=== PATIENT | female | born 1960 | race African-American/Black ===

== ENCOUNTER 2016-09-25 21:51 | Inpatient (IN) ==
[2016-09-25] MEDS ORDERED: D50W SYRINGE ONE (22:12)
[2016-09-25] MEDS ORDERED: NS 500 ML ONE (22:13)
--- NOTE | 2016-09-25 22:32 | PROVIDER DOCUMENTATION ---
HPI-General Adult - General Chief Complaint: Altered Mental Status Stated Complaint: "AMS, lethargic during dialysis." Time Seen by Provider: 09/25/16 22:05 Source: other (dialysis) Unable to obtain history due to:: altered Allergies/Adverse Reactions: Patient Allergies Allergy/AdvReac Type Severity Reaction Status Date / Time clindamycin Allergy RASH Verified 09/25/16 23:00 Home Medications: Home Medication List Medication Instructions Recorded Confirmed Last Taken Type Cinacalcet HCl [Sensipar] 30 mg PO BID 07/11/15 09/25/16 01/31/16 08:00 History Gabapentin 300 mg PO BID 07/11/15 09/25/16 01/31/16 08:00 History Lanthanum Carbonate [Fosrenol] 1,000 mg PO TID CC 07/11/15 09/25/16 01/31/16 12: 00 History Epoetin Alfredito [Epogen] 10,000 unit SUBQ MoWeFr@0900 #30 08/02/15 09/25/16 09:00 Rx vial Levothyroxine [Synthroid] 100 microgm PO DAILY #30 tablet 08/02/15 09/25/16 Unknown Rx Sodium Hypochlorite 0.25% [Dakin's 1 ml TOP BID #1 bottle 08/02/15 09/25/16 Unknown Rx 0.25% Soln] Hydralazine [Apresoline] 50 mg PO TID #90 tablet 02/01/16 09/25/16 Unknown Rx Folic Acid 0.4 mg PO DAILY #30 tablet 07/16/16 09/25/16 Unknown Rx Tramadol [Ultram] 50 mg PO Q8HR PRN #60 tablet 07/16/16 09/25/16 Unknown Rx - History of Present Illness -Gen Adult Nature of Presenting Problems: 56 y/o AAF was at dialysis and near the end when the daughter states she became confused and lethargic. Pt was sent to the ED for evaluation. Dialysis reports they removed 6 kilos. Family states her mom is set in her ways and this was her first dialysis in 2 weeks. Location of Pain/Injury: reports: none Onset/Duration: reports: abrupt, this evening Timing: reports: still present Modifying Factors: improves with: nothing Review of Systems - Adult - REVIEW OF SYSTEMS - ADULT ROS:: ROS per family (Pt would answer questions but unable to carry on a converstion.) Constitutional: reports: other (lethargic) Respiratory: denies: cough, shortness of breath, wheezing Neurological: reports: other (confused). denies: seizure, slurred speech Past History - Adult - PAST MEDICAL HISTORY-ADULT Review of Records: reports: Old Records Reviewed, Nursing Assessment Review, Medications Reviewed Major Childhood Illnesses: reports: denies history Cardiovascular: reports: cardiac disease, CHF, HTN, hyperlipidemia Respiratory: reports: denies history Gastrointestinal: reports: denies history Obstetrical/Gynecological: reports: denies history Genitourinary: reports: dialysis, ESRD, kidney disease Musculoskeletal: reports: denies history Neurological: reports: denies history Psychiatric: reports: depression Endocrine/Immune: reports: Diabetes, thyroid disorder Other Conditions: reports: denies history - PRIOR SURGERIES/PROCEDURES Surgical/Procedure History: reports: cholecystectomy, BTL, , indwelling device - IMMUNIZATION STATUS Childhood Immunizations: See Nurse Assessment Flu Vaccine: See Nurse Assessment - FAMILY HISTORY Family History: reviewed, not pertinent - SOCIAL HISTORY Smoking: non-smoker Substance Use: alcohol Alcohol Use Frequency: occasionally Living Situation: family Physical Exam-General - PHYSICAL EXAM-ADULT Initial Vital Signs Reviewed: Yes - CONSTITUTIONAL General Appearance: alert, obese (morbid) - EYES Eyes: pink conjunctivae. negative: PERRL/EOMI (left eye deviation and bilateral pupils are mildly reactive) - HEAD, EARS, NOSE, MOUTH & THROAT HENMT: moist mucous membranes, normal ENT inspection, TMs normal, pharynx normal - NECK Neck: non-tender, full range of motion, supple - RESPIRATORY Respiratory: chest non-tender, no respiratory distress, no accessory muscle use , decreased breath sounds - GASTROINTESTINAL (ABDOMEN) Abdominal Exam: normal bowel sounds, non tender, soft - MUSCULOSKELETAL Back Exam: normal inspection, no CVA tenderness, no vertebral tenderness Extremity: deformity (left foot/ankle amptuation), other (fistula in left arm, multiple healed scars across bilateral hands.) - SKIN Integumentary: normal color, normal turgor, warm/dry - NEUROLOGIC Neurologic: grossly normal, no motor/sensory deficits - PSYCHIATRIC Psych/Mental Status: oriented x 3, depressed affect. negative: normal thought process Progress - PLAN OF CARE/RESULTS Progress/Plan/Lab Results: Orders Category Date Time Status HEAD W/O CONTRAST [CT] Stat Exams 09/25/16 22:26 Taken CBC WITH ELECTRONIC DIFF [HEME] Stat Lab 09/25/16 22:20 Completed COMPREHENSIVE METABOLIC PANEL [CHEM] Stat Lab 09/25/16 22:20 Completed PROTIME WITH INR [COAG] Stat Lab 09/25/16 22:20 Completed URINE CULTURE [RM] Routine Lab 09/26/16 01:56 Received 0.9% Sodium Chloride Inj [Ns] 500 ml Med 09/25/16 22:13 Discontinued .ROUTE As Directed 0.9% Sodium Chloride Inj [Ns] 500 ml Med 09/25/16 23:03 Active IV 30 mls/hr Dextrose 50% Syringe [D50w Syringe] Med 09/25/16 22:12 Discontinued 50 ml .ROUTE .STK-MED ONE Dextrose 50% Syringe [D50w Syringe] Med 09/25/16 23:03 Discontinued 50 ml IV NOW ONE EKG [EKG] Stat Ther 09/25/16 22:09 Ordered Vital Signs Temp Pulse Resp BP Pulse Ox 09/26/16 01:38 90 13 127/75 100 09/25/16 23:19 97.9 F 92 H 18 160/117 98 09/25/16 22:30 97.8 F 92 H 16 100/75 98 09/25/16 21:55 97.7 F 92 H 12 123/89 100 clindamycin Allergy (Verified 09/25/16 23:00) RASH Cinacalcet HCl [Sensipar] 30 mg PO BID 07/11/15 Gabapentin 300 mg PO BID 07/11/15 Lanthanum Carbonate [Fosrenol] 1,000 mg PO TID CC 07/11/15 Epoetin Alfredito [Epogen] 10,000 unit SUBQ MoWeFr@0900 #30 vial 08/02/15 Levothyroxine [Synthroid] 100 microgm PO DAILY #30 tablet 08/02/15 Sodium Hypochlorite 0.25% [Dakin's 0.25% Soln] 1 ml TOP BID #1 bottle 08/02/15 Hydralazine [Apresoline] 50 mg PO TID #90 tablet 02/01/16 Folic Acid 0.4 mg PO DAILY #30 tablet 07/16/16 Tramadol [Ultram] 50 mg PO Q8HR PRN #60 tablet 07/16/16 I&O 09/24/16 09/25/16 09/26/16 06:59 06:59 06:59 Output Total 210 Balance -210 Laboratory 09/26/16 09/26/16 09/25/16 01:05 00:41 23:30 WBC RBC Hgb Hct MCV MCH MCHC RDW Std Deviation Plt Count MPV Immature Gran % (Auto) Neut % (Auto) Lymph % (Auto) Cocke % (Auto) Eos % (Auto) Baso % (Auto) Immature Gran # (Auto) Neut # (Auto) Lymph # (Auto) Cocke # (Auto) Eos # (Auto) Baso # (Auto) PT INR Sodium Potassium Chloride Carbon Dioxide Anion Gap BUN Creatinine Estimated GFR/1.73 m2 BUN/Creatinine Ratio Glucose POC Glucose 100 106 H Calculated Osmolality Calcium Total Bilirubin AST ALT Alkaline Phosphatase Total Protein Albumin Globulin Albumin/Globulin Ratio Urine Source CATH Urine Color YELLOW Urine Clarity CLEAR Urine pH 7.0 Ur Specific [place] 1.015 Urine Protein 100 A Urine Ketones NEGATIVE Urine Blood SMALL A Urine Nitrite NEGATIVE Urine Bilirubin NEGATIVE Urine Urobilinogen 0.2 Urine Microscopic RBC <10 Urine WBC NEGATIVE Urine Microscopic WBC <10 Ur Epithelial Cells <10 Urine Bacteria NEGATIVE Urine Glucose 100 A 09/25/16 09/25/16 09/25/16 22:20 22:20 22:20 WBC 7.89 RBC 3.64 L Hgb 9.8 L Hct 31.3 L MCV 86.0 MCH 26.9 L MCHC 31.3 L RDW Std Deviation 16.7 H Plt Count 145 MPV 11.4 H Immature Gran % (Auto) 0.3 Neut % (Auto) 72.3 Lymph % (Auto) 14.6 L Cocke % (Auto) 9.5 H Eos % (Auto) 2.9 Baso % (Auto) 0.4 Immature Gran # (Auto) 0.02 Neut # (Auto) 5.71 Lymph # (Auto) 1.15 L Cocke # (Auto) 0.75 H Eos # (Auto) 0.23 Baso # (Auto) 0.03 PT 12.2 H INR 1.15 Sodium 134 L Potassium 4.9 Chloride 89 L Carbon Dioxide 23 L Anion Gap 22 BUN 66 H Creatinine 7.0 H Estimated GFR/1.73 m2 7 BUN/Creatinine Ratio 9 Glucose 71 POC Glucose Calculated Osmolality 286 Calcium 7.8 L Total Bilirubin 0.63 AST 23 ALT 15 Alkaline Phosphatase 72 Total Protein 9.4 H Albumin 4.2 Globulin 5.2 Albumin/Globulin Ratio 0.8 Urine Source Urine Color Urine Clarity Urine pH Ur Specific [place] Urine Protein Urine Ketones Urine Blood Urine Nitrite Urine Bilirubin Urine Urobilinogen Urine Microscopic RBC Urine WBC Urine Microscopic WBC Ur Epithelial Cells Urine Bacteria Urine Glucose - CT/MRI 1 CT Study: Head Impression: Abnormal (no Blood, no hydrocephalus, mild left maxillary sinusitis Read by Radiologist) Attestation - Scribe Verification/Attestation Scribe:: Js Conroy Acting as Scribe for:: Hemal Richmond Scribe documention review:: This chart was documented by a scribe and accurately reflects the service the provider performed and the decisions made by the provider.
[2016-09-25 22:35] LABS: MANUAL DIFF NEEDED? NO
[2016-09-25 22:38] LABS: BASO% 0.4 % (0.0-0.8); EOS# 0.23 X1000 (0.0-0.7); EOS% 2.9 % (0.0-10.0); HEMATOCRIT 31.3 % (37.0-47.0); HEMOGLOBIN 9.8 g/dL (12.0-16.0); IMM GRAN# 0.02 X1000 (0.0-0.04); IMM GRAN% 0.3 % (0.0-0.5); LYMPH# 1.15 X1000 (1.2-3.4); LYMPH% 14.6 % (20.5-51.1); MCH 26.9 PG (27-31); MCHC 31.3 g/dL (33-37); MONO# 0.75 X1000 (0.11-0.59); MONO% 9.5 % (1.7-9.3); MPV 11.4 FL (7.4-10.4); NEUT% 72.3 % (42.2-75.2); PLT 145 X1000 (130-400); RBC 3.64 XMIL (4.2-5.4)
[2016-09-25 22:52] LABS: ALBUMIN 4.2 g/dL (3.5-5.0); CALCIUM 7.8 mg/dL (8.8-10.2); POTASSIUM 4.9 mmol/L (3.5-5.1); TOTAL BILIRUBIN 0.63 mg/dL (0.20-1.00); TOTAL PROTEIN 9.4 g/dL (6.3-8.3)
[2016-09-25] MEDS ORDERED: D50W SYRINGE IV ONE (23:03)
[2016-09-25] MEDS ORDERED: NS 500 ML IV ONE (23:03)
[2016-09-26 00:03] LABS: INR 1.15; PROTIME 12.2 Seconds (9.2-11.7)
[2016-09-26 01:14] LABS: URINE SOURCE CATH
[2016-09-26 01:55] LABS: BILIRUBIN URINE NEGATIVE (NEGATIVE); BLOOD URINE SMALL (NEGATIVE); CLARITY CLEAR (CLEAR); COLOR YELLOW; GLUCOSE URINE 100 mg/dL (NEGATIVE); LEUKOCYTES URINE NEGATIVE (NEGATIVE); NITRITE URINE NEGATIVE (NEGATIVE); PROTEIN URINE 100 mg/dL (NEGATIVE); SP GRAVITY URINE 1.015; URINE CULTURE NEEDED? YES; URINE EPITHELIAL CELLS <10 /HPF (<10); URINE RBC <10 /HPF (<10); URINE WBC <10 /HPF (<10); UROBILINOGEN URINE 0.2 EU/dL (0.2-1.0)
[2016-09-26] MEDS ORDERED: ZOFRAN IV PRN (04:38)
[2016-09-26] MEDS ORDERED: D50W SYRINGE IV PRN (04:46)
[2016-09-26 04:52] LABS: BLOOD TYPE ARTERIAL; SAMPLE BLOOD
[2016-09-26 05:11] LABS: ALLEN TEST YES; BE -2.6 mmoll (-3.0-3.0); DRAW SITE R RADIAL; METHB 1.8 % (0.0-1.5); O2(CT) 11.5 mL/dL (15.0-23.0); PCO2(98.6) 47 mmHg (35-45); PO2(98.6) 53 mmHg (60-100); SAO2 87.1 % (95.0-100.0); THB 9.7 g/dL (11.5-17.4); pH(98.6) 7.31 (7.35-7.45)
[2016-09-26 05:12] LABS: MODALITY CANNULA
[2016-09-26 05:29] LABS: HEMOGLOBIN A1C 4.5 % (4.8-6.0)
--- NOTE | 2016-09-26 05:53 | EKG Report ---
Test Performed on : 09/25/2016 10:14:00 PM Test Reason : AMS Blood Pressure : / mmHG Vent. Rate : 093 BPM Atrial Rate : 093 BPM P-R Int : 224 ms QRS Dur : 094 ms QT Int : 390 ms P-R-T Axes : 056 042 027 degrees QTc Int : 484 ms Sinus rhythm. with 1st degree AV block. Indeterminate axis Prolonged QT Abnormal ECG When compared with ECG of 13-JUL-2016 08:39, No significant change was found Unconfirmed Result
--- NOTE | 2016-09-26 06:08 | HISTORY AND PHYSICAL ---
CHIEF COMPLAINT: Confusion. PRIMARY HOT STICK MAN: Dr. Rucker HISTORY OF PRESENT ILLNESS: Ms. James is a 56-year-old female with end-stage renal disease that has Friday, Friday and Friday dialysis that is followed by Dr. Rucker. She reportedly did not undergo hemodialysis for an unknown reason for a couple of weeks. There is no family at the bedside. The ER provider spoke to the daughter who stated that the patient had not been to dialysis and today upon going to dialysis they pulled off roughly 15 pounds of fluid. Apparently, upon leaving the dialysis center, she became confused and came into the emergency room. The patient is unable to provide any information. She is disoriented x3 and unable to give any account of what happened. A CT of the head was obtained which was reported to us as stable by the ER provider Dr. Richmond. A report is not available and the ER charting also was not available at this time. Laboratory Data initially drawn was stable with the patient's baseline labs. She had previously been admitted on 07/13/2016. On arrival to the emergency room, her blood glucose was around 60. She received 1 amp of D50. She was also given a 500 mL bolus of normal saline. She will be admitted to the medical floor for further evaluation and treatment. PAST MEDICAL HISTORY: 1. Iron deficiency anemia. 2. End-stage renal disease with Friday, Friday and Friday hemodialysis. 3. Calciphylaxis. 4. Morbid obesity. 5. Diabetes mellitus type 2. 6. Osteomyelitis of the left leg. 7. Hypothyroidism. 8. Left eye blindness. 9. Medical noncompliance. SURGICAL HISTORY: 1. Hysterectomy. 2. Colonoscopy. 3. Left arm shunt. 4. section. 5. Left toe amputation and then left [id number] amputation. SOCIAL HISTORY: Apparently, the patient does not drink, use tobacco or illicit drugs as she lived with her niece on the last dictation that was available on 07/13/2016. ALLERGIES: She is allergic to clindamycin causing a rash. HOME MEDICATIONS: 1. Neurontin 300 mg p.o. b.i.d. 2. Fosrenol 1000 mg p.o. t.i.d. 3. Sensipar 30 mg p.o. b.i.d. 4. Epogen 20736 units subcu Friday, Friday and Friday. 5. Dakin 0.25% solution topically b.i.d. 6. Synthroid 100 mcg p.o. b.i.d. 7. Apresoline 50 mg p.o. t.i.d. 8. Folic Acid 0.4 mg p.o. daily. 9. Ultram 50 mg p.o. q.8 p.r.n. REVIEW OF SYSTEMS: Review of systems was unable to be obtained related to patient's mentation. PHYSICAL EXAMINATION: VITAL SIGNS: Temperature 98.5 degrees, pulse 89, respirations 14, blood pressure 176/80 and oxygen saturation 100% on 2 L nasal cannula. GENERAL: A 56-year-old female very lethargic, says some words unable to answer any questions lying on the ER stretcher in no acute distress. HEENT: Head is atraumatic, normocephalic. Pupils equal, round, reactive to light. Extraocular eye movement could not be tested as patient will not follow commands. Mucous membranes are moist. NECK: Short and thick. JVD could not be thoroughly examined related to body habitus. No carotid bruit was heard on auscultation. CARDIOVASCULAR: S1-S2 appreciated. 1 to 2/6 ejection murmur noted. No gallops. No rubs. LUNGS: Crepitations noted throughout bilateral lung jeffrey, symmetrical rise and fall respirations. No rhonchi. No rales. ABDOMEN: Protuberant soft, nondistended, and nontender. Bowel sounds hypoactive in all 4 quadrants. No pulsatile mass. No organomegaly. NEUROLOGICAL: She is lethargic almost to the extent of being obtunded at times. Does reflex to painful stimulus. Does not follow commands. Does attempt to answer some questions but does not answer any questions accurately. Disoriented x3. EXTREMITIES: Left above the knee amputation site warm and dry. Right lower extremity 1 to 2+ edema nonpitting. 2+ pedal pulses. Left upper extremity AV graft with positive bruit and thrill. GENITOURINARY: Anderson catheter will be placed. No bladder distention noted. SKIN: Warm, dry and intact. No acute lesions or rash. DIAGNOSTIC DATA: CT of the head as interpreted by Dr. Richmond in the ER. No acute intracranial process. A report is not available at this time on the CT exam. The ER charting on this patient for today also could not be found related to this CT scan. LABORATORY DATA: WBC 7.89, hemoglobin 9.8, hematocrit 31.3 and platelet count 145,000. PT 12.2, INR 1.15. Sodium 134, potassium 4.9, chloride 89, carbon dioxide 23, BUN 66, creatinine 7.0, and glucose 106. Urine unremarkable. ABG is pending. ASSESSMENT AND PLAN: 1. Dialysis dysequilibrium syndrome. We will consult Dr. Rucker. A 500 mL bolus of normal saline was given in the emergency room. Her blood pressure and vital signs have all normalized. We will continue to monitor neuro checks. 2. Diabetes mellitus type 2. The last hemoglobin A1c was 6.1. It was done on 06/09/2015, one has not been repeated since that time. We will check a hemoglobin A1c. The patient does not appear to be on any outpatient treatment and was hypoglycemic on arrival. We will monitor. 3. Hypothyroidism. Check TSH level. Continue Synthroid. 4. Hyperlipidemia, aware. 5. Morbid obesity. 6. Peripheral artery disease, aware. 7. End-stage renal disease with Friday, Friday, and Friday hemodialysis as noted above. We will consult Dr. Rucker. Further recommendations per patient clinical course. Dictated by EDUARDO Tapia for Samina Doran MD Did independent exam and discussed plan with RAFFI ALDANA
[2016-09-26] MEDS ORDERED: NS 2,000 ML MISC PRN (06:28)
[2016-09-26] MEDS ORDERED: HEPARIN IV PRN (06:28)
[2016-09-26] MEDS ORDERED: TIGHT: 0.2 ML/HR MISC PRN (06:28)
--- NOTE | 2016-09-26 07:47 | Diag Imaging Result Document ---
PROCEDURE NAME: HEAD W/O CONTRAST - 09/25/2016 CT BRAIN WITHOUT: FINDINGS: No parenchymal hemorrhage. No epidural or subdural hematoma. No subarachnoid hemorrhage. No mass identified on this noncontrasted exam. No hydrocephalus. No sinus opacification. Minimal mucosal thickening in the left maxillary sinus. IMPRESSION: 1. No hemorrhage. 2. Mild left maxillary mucosal thickening. A preliminary report was given at 10:46 p.m.
[2016-09-26] MEDS: HEPARIN SUBQ SCH ×3 (09:14→20:11)
[2016-09-26] MEDS ORDERED: NS 2,000 ML ONE (10:54)
[2016-09-26] MEDS ORDERED: HEPARIN ONE (10:55)
--- NOTE | 2016-09-26 13:51 | CONSULTATION ---
DATE OF CONSULTATION: 09/26/2016 REASON FOR CONSULTATION: Assistance with management, end-stage renal disease. HISTORY OF PRESENT ILLNESS: Ms James is a 56-year-old black female who is well known to me. She has end-stage kidney disease secondary to diabetes. She also has peripheral vascular disease, hypertension, obesity, hyperphosphatemia, anemia, hypothyroidism. She had a in her family and became depressed and skipped dialysis for 1 week. This is a problem that she has dealt with intermittently over time, and it has significantly impaired her adherence with her outpatient dialysis regimen, as well as her diet, fluid restriction, and medications. She did attend treatment last evening where she had 19 kg of fluid above her dry weight. She completed her treatment, but was sent to the emergency room because of altered mental status. She underwent evaluation in the emergency room, which included a CT of the brain. This study had no acute intracranial changes. Her laboratory data was consistent with end-stage kidney disease, but no other acute abnormalities aside from modest anemia and modest hypoxemia. She was treated with supplemental oxygen and admitted to the floor. No IV antibiotics were administered. Today she is awake. She describes her history and she became tearful. She is not able to give any specific reason why she has skipped dialysis except she just could not emotionally deal with the burden. She does not have chest pain or shortness of breath or chest discomfort. She is thirsty all the time. PAST MEDICAL HISTORY: As above. HOME MEDICATIONS: Include gabapentin, lanthanum carbonate, cinacalcet, erythropoietin, Dakin's solution, levothyroxine, hydralazine, folate, tramadol. ALLERGIES: Clindamycin. SOCIAL HISTORY: She lives with her children who are the primary caregivers. FAMILY HISTORY: Positive for diabetes, hypertension, and ESRD. PHYSICAL EXAMINATION: Vital Signs: Blood pressure 153/78, heart rate 87, respirations 17, afebrile. General: She is a morbidly obese woman, tearful, flat affect. Skin: Warm and dry. Conjunctivae are pink. Pupils are equal. Oropharynx is dry. Dentition normal. Neck: Supple. The neck veins are not visible. Heart: Regular. No murmurs, rubs, or gallops. Lungs: Have equal breath sounds. No crackles or wheezes. Abdomen: Soft and nontender. Bowel sounds are present. Extremities: Have 1+ edema. No clubbing or cyanosis. Left AKA. Neurologic: Grossly nonfocal. LABORATORY DATA: A pH of 7.31, pCO2 of 47, PO2 of 53. Hemoglobin 9.8. Sodium 134, potassium 4.9, chloride 89, bicarbonate 23, BUN 66, creatinine 7. IMPRESSION AND PLAN: Uremia with altered sensorium, improved following dialysis. There was a question raised about dialysis disequilibrium. I think that is not likely, and it is more likely she was just comatose from uremia. These symptoms were present before dialysis was initiated on yesterday. We will dialyze her today and daily through Friday in order to achieve her outpatient dry weight and to adequately manage her uremia. Her electrolytes and acid-base status are acceptable. Her anemia is moderate, and she is receiving erythropoietin. No further changes. Continue home medications.
[2016-09-26] MEDS: FOSRENOL PO SCH ×3 (15:58→18:04)
[2016-09-26] MEDS: APRESOLINE PO SCH ×3 (15:58→18:05)
[2016-09-26] MEDS: FOLIC ACID PO SCH (15:58)
[2016-09-26] MEDS: SENSIPAR PO SCH ×2 (15:59→20:16)
[2016-09-26] MEDS: SYNTHROID PO SCH (15:59)
[2016-09-26] MEDS: DAKIN'S 0.25% SOLN TOP SCH ×2 (16:00→20:16)
[2016-09-26 19:09] LABS: CALCIUM 8.1 mg/dL (8.8-10.2); POTASSIUM 3.8 mmol/L (3.5-5.1)
[2016-09-26] MEDS ORDERED: NS 500 ML IV ONE (20:02)
--- NOTE | 2016-09-27 05:41 | EKG Report ---
Test Performed on : 09/26/2016 7:35:39 PM Test Reason : No Order in [place] Blood Pressure : / mmHG Vent. Rate : 122 BPM Atrial Rate : 061 BPM P-R Int : 000 ms QRS Dur : 090 ms QT Int : 376 ms P-R-T Axes : 000 -15 036 degrees QTc Int : 535 ms Atrial fibrillation. with rapid ventricular response. Indeterminate axis Abnormal ECG When compared with ECG of 25-SEP-2016 22:14, (Unconfirmed) Atrial fibrillation. has replaced Sinus rhythm. Confirmed by Jus Wilson MD ([id number]) on 09/27/2016 8:59:45 PM
[2016-09-27] MEDS: HEPARIN SUBQ SCH ×3 (06:04→21:37)
[2016-09-27 06:36] LABS: MANUAL DIFF NEEDED? NO
[2016-09-27 06:51] LABS: BASO% 0.4 % (0.0-0.8); EOS# 0.15 X1000 (0.0-0.7); HEMATOCRIT 29.9 % (37.0-47.0); HEMOGLOBIN 9.1 g/dL (12.0-16.0); IMM GRAN# 0.02 X1000 (0.0-0.04); IMM GRAN% 0.3 % (0.0-0.5); LYMPH# 1.22 X1000 (1.2-3.4); LYMPH% 15.9 % (20.5-51.1); MCH 27.2 PG (27-31); MCHC 30.4 g/dL (33-37); MCV 89.3 FL (81-99); MPV 11.5 FL (7.4-10.4); NEUT% 64.4 % (42.2-75.2); PLT 155 X1000 (130-400); RBC 3.35 XMIL (4.2-5.4)
[2016-09-27 07:02] LABS: CALCIUM 8.1 mg/dL (8.8-10.2); POTASSIUM 3.9 mmol/L (3.5-5.1)
[2016-09-27] MEDS ORDERED: HEPARIN IV PRN (07:16)
[2016-09-27] MEDS ORDERED: NS 2,000 ML MISC PRN (07:16)
[2016-09-27] MEDS ORDERED: TIGHT: 0.2 ML/HR MISC PRN (07:16)
[2016-09-27] MEDS: EPOGEN SUBQ SCH (08:46)
[2016-09-27] MEDS ORDERED: NS 2,000 ML ONE (08:47)
[2016-09-27] MEDS ORDERED: HEPARIN ONE (08:47)
[2016-09-27] MEDS: FOSRENOL PO SCH ×3 (11:21→18:42)
[2016-09-27] MEDS: DAKIN'S 0.25% SOLN TOP SCH ×2 (11:22→21:38)
[2016-09-27] MEDS: APRESOLINE PO SCH ×3 (11:22→18:42)
--- NOTE | 2016-09-27 11:27 | PROGRESS NOTE ---
DATE: 09/27/2016 SUBJECTIVE: She states she is ready for discharge. No shortness of breath. No nausea or vomiting. She does not remember coming to the hospital. OBJECTIVE: Vital Signs: Blood pressure 116/52, heart rate 87, respirations 17, afebrile. General: She is an obese woman in no acute distress. Skin: Warm and dry. Conjunctivae are pink. Oropharynx is moist. Neck: Neck veins are not visible. Heart: Regular. Lungs: Have equal breath sounds. No crackles. Abdomen: Soft and nontender. Bowel sounds are present. Extremities: Have no edema, clubbing, or cyanosis. LABORATORY DATA: Sodium 135, potassium 3.9, chloride 94, bicarbonate 25, BUN 37, creatinine 5.5, hemoglobin 9.1. IMPRESSION: 1. Uremia from dialysis nonadherence, improved. 2. Volume overload, improved. 3. Anemia: No significant change. 4. Okay for discharge from my perspective today.
[2016-09-27] MEDS ORDERED: ZOFRAN ONE (12:24)
--- NOTE | 2016-09-27 14:46 | PROGRESS NOTE ---
DATE: 09/27/2016 SUBJECTIVE: This patient is getting dialysis today. She is answering all of my questions, but her answer is slow. She knows that she is at [facility]. She is somnolent, but arousable. It looks like the encephalopathy is getting better. OBJECTIVE: Vital Signs: Temperature 98.1 degrees, pulse 87, respiratory rate 17, blood pressure 116/52, and oxygen saturation 99% on 2 liters of nasal cannula. HEENT: Head normocephalic. No trauma. PERRLA. Neck: Supple. No JVD. No masses. Central trachea. Chest: Clear to auscultation. Mild rales at the bases. Abdomen: Protuberant, soft, nontender, nondistended. Bowel sounds present. Extremities: There is 2+ lower pedal edema, left upper extremity with an AV graft with positive bruit and thrill. Neurological: The patient is somnolent, but arousable. She is answering all my questions and following commands. LABORATORY DATA: WBC 7.6, hemoglobin 9.1, hematocrit 29.9, platelets 155,000. Sodium 135, potassium 3.9, chloride 94, bicarbonate 25, BUN 37, creatinine 5.5, glucose 80, calcium 8.1. ASSESSMENT AND PLAN: 1. Metabolic encephalopathy, likely secondary to uremia. It looks like this is getting better. She is more oriented, and she is answering all my questions. She is still somnolent. We will continue with monitoring and dialysis. 2. End-stage renal disease, on hemodialysis. This patient is getting dialysis today. Probably tomorrow she will get a new one as well. The nephrology department is following this patient. We will follow their recommendations. 3. Type 2 diabetes. Her hemoglobin A1c is 4.5. We will continue with the same treatment and monitoring. Upon arrival, this patient was hypoglycemic. Probably, this patient has been having hypoglycemia at home as well. 4. Hypothyroidism. Continue with the same treatment. 5. Hyperlipidemia, aware. 6. Morbid obesity, aware. 7. Peripheral artery disease, aware.
[2016-09-27] MEDS: FOLIC ACID PO SCH (15:43)
[2016-09-27] MEDS: SYNTHROID PO SCH (15:43)
[2016-09-27] MEDS: SENSIPAR PO SCH ×2 (15:43→21:38)
[2016-09-28] MEDS: HEPARIN SUBQ SCH ×3 (04:41→21:44)
[2016-09-28 08:17] LABS: MANUAL DIFF NEEDED? NO
[2016-09-28 08:28] LABS: BASO% 0.4 % (0.0-0.8); EOS# 0.23 X1000 (0.0-0.7); EOS% 2.9 % (0.0-10.0); HEMATOCRIT 32.1 % (37.0-47.0); HEMOGLOBIN 9.6 g/dL (12.0-16.0); LYMPH% 21.6 % (20.5-51.1); MCHC 29.9 g/dL (33-37); MCV 90.4 FL (81-99); MONO# 1.15 X1000 (0.11-0.59); MONO% 14.6 % (1.7-9.3); MPV 12.2 FL (7.4-10.4); NEUT% 60.5 % (42.2-75.2); PLT 172 X1000 (130-400); RBC 3.55 XMIL (4.2-5.4)
[2016-09-28 09:05] LABS: CALCIUM 7.7 mg/dL (8.8-10.2)
[2016-09-28] MEDS: SENSIPAR PO SCH ×2 (10:38→21:45)
[2016-09-28] MEDS: FOSRENOL PO SCH ×3 (10:39→21:45)
[2016-09-28] MEDS: FOLIC ACID PO SCH (10:39)
[2016-09-28] MEDS: APRESOLINE PO SCH ×3 (10:39→21:45)
[2016-09-28] MEDS: DAKIN'S 0.25% SOLN TOP SCH ×2 (10:39→21:45)
[2016-09-28] MEDS: SYNTHROID PO SCH (10:39)
--- NOTE | 2016-09-28 13:12 | PROGRESS NOTE ---
DATE: 09/28/2016 SUBJECTIVE: This patient is still somnolent but arousable. She is oriented x3. Her encephalopathy is improving. OBJECTIVE: Vital Signs: Temperature 97.4 degrees, pulse 79, respiratory rate 18, blood pressure 111/54, O2 saturation 100% on 2 L of nasal cannula. HEENT: Head normocephalic. No trauma. PERRLA. Neck: Supple. No JVD. No masses. Central trachea. Chest: Clear to auscultation. Mild rales at the bases. Abdomen: Protuberant and soft. Nontender, nondistended. Positive bowel sounds. Extremities: 2+ pedal edema. Left upper extremity with an AV graft with positive bruit and thrill. Neurological: The patient is somnolent but arousable. Oriented x3. She is bedbound even at home. She is following commands on and off. LABORATORY: WBC 7.8, hemoglobin 9.6, hematocrit 32.1, platelet 172,000. Sodium 134, potassium 4, chloride 92, bicarbonate 27, BUN 31, creatinine 5.4, glucose 75, calcium 7.7. ASSESSMENT AND PLAN: 1. Metabolic encephalopathy likely secondary to uremia. This patient is getting better now. She is oriented x3 but she is still somnolent. We will continue with monitoring and dialysis. 2. End-stage renal disease on hemodialysis. I am not sure if she is going to get dialysis today. She received dialysis for the past 2 days, nephrology department is following this patient. 3. Type 2 diabetes. Her hemoglobin A1c is 4.5, she has been having borderline low and even low blood sugar. She is not on any treatment at this moment. Will continue to monitor. 4. Hypothyroidism. Continue with the same treatment. 5. Hyperlipidemia. Aware. 6. Morbid obesity. Aware. 7. Peripheral artery disease. Aware.
[2016-09-28] MEDS ORDERED: ZOFRAN ODT PO PRN (23:03)
[2016-09-28] MEDS ORDERED: MYLICON PO PRN (23:03)
[2016-09-28] MEDS ORDERED: TYLENOL PO PRN (23:03)
[2016-09-29] MEDS: HEPARIN SUBQ SCH ×3 (05:54→21:19)
[2016-09-29 07:00] LABS: MANUAL DIFF NEEDED? NO
[2016-09-29 07:08] LABS: BASO% 0.4 % (0.0-0.8); EOS# 0.39 X1000 (0.0-0.7); EOS% 4.7 % (0.0-10.0); HEMATOCRIT 31.2 % (37.0-47.0); HEMOGLOBIN 9.2 g/dL (12.0-16.0); LYMPH# 1.31 X1000 (1.2-3.4); LYMPH% 15.8 % (20.5-51.1); MCH 26.8 PG (27-31); MCHC 29.5 g/dL (33-37); MONO# 1.12 X1000 (0.11-0.59); MONO% 13.5 % (1.7-9.3); NEUT% 65.6 % (42.2-75.2); PLT 178 X1000 (130-400); RBC 3.43 XMIL (4.2-5.4)
[2016-09-29 07:19] LABS: CALCIUM 7.1 mg/dL (8.8-10.2); POTASSIUM 4.4 mmol/L (3.5-5.1)
[2016-09-29] MEDS: FOLIC ACID PO SCH (08:37)
[2016-09-29] MEDS: FOSRENOL PO SCH ×3 (08:37→16:54)
[2016-09-29] MEDS: SENSIPAR PO SCH ×2 (08:37→21:19)
[2016-09-29] MEDS: SYNTHROID PO SCH (08:37)
[2016-09-29] MEDS: DAKIN'S 0.25% SOLN TOP SCH ×2 (08:38→21:20)
[2016-09-29] MEDS: APRESOLINE PO SCH ×3 (08:38→16:54)
[2016-09-29] MEDS ORDERED: TORADOL IV PRN (14:06)
--- NOTE | 2016-09-29 16:16 | PROGRESS NOTE ---
DATE: 09/29/2016 SUBJECTIVE: This patient is completely alert and oriented today. Her encephalopathy has improved. She is complaining of back pain and we put this patient on Toradol IV q.6 hours p.r.n. and she states that she used to be on gabapentin, so I am going to start this medication as well. I asked already for physical therapy but this patient is refusing physical therapy at this moment because of her pain. She states that she does not want to be moved from the bed because of her pain. OBJECTIVE: Vital signs: Temperature 97.6 degrees, pulse 76, respiratory rate 16, blood pressure 128/38, oxygen saturation 100% on 2 L of nasal cannula. HEENT: Head normocephalic. No trauma. PERRLA. Neck: Supple. No JVD. No masses. Central trachea. Cardiovascular: RRR. No murmurs. No gallops. Chest: Decreased breath sounds globally, likely related to body mass. Abdomen: Soft, obese, nontender. Extremities: No edema. No clubbing. No cyanosis. Skin: Dry. Neurological: The patient is alert and oriented x3. No focal neurological deficits. LABORATORY: WBC 8.3, hemoglobin 9.2, hematocrit 31.2, platelet 178,000. Sodium 133, potassium 4.4, chloride 93, bicarbonate 24, BUN 42, creatinine 6.9, glucose 79, calcium 7.1. ASSESSMENT AND PLAN: 1. Metabolic encephalopathy likely secondary to uremia resolved. Tomorrow she will have again dialysis and hopefully after dialysis she will go home. This patient needs physical therapy. Probably she will need to go to a rehab center but she denies physical therapy here because of her pain. I will talk again with this patient about this possibility. 2. End-stage renal disease, on hemodialysis. Tomorrow she is due for dialysis. Nephrology department is on board. We will monitor. 3. Type 2 diabetes. Her hemoglobin A1c is 4.5 and her blood sugar has been normal. Actually I believe that this patient has been having hypoglycemia at home. 4. Hypothyroidism. Continue with the same treatment. 5. Hyperlipidemia. Aware. 6. Morbid obesity. Aware. 7. Peripheral artery disease. Aware.
[2016-09-29] MEDS: NEURONTIN PO SCH (16:55)
[2016-09-30] MEDS: HEPARIN SUBQ SCH ×2 (05:30→14:11)
[2016-09-30 06:51] LABS: MANUAL DIFF NEEDED? NO
[2016-09-30 07:01] LABS: BASO% 0.5 % (0.0-0.8); EOS# 0.48 X1000 (0.0-0.7); EOS% 5.7 % (0.0-10.0); HEMATOCRIT 30.4 % (37.0-47.0); LYMPH# 1.46 X1000 (1.2-3.4); LYMPH% 17.2 % (20.5-51.1); MCH 26.7 PG (27-31); MCHC 29.6 g/dL (33-37); MCV 90.2 FL (81-99); MONO# 1.02 X1000 (0.11-0.59); MPV 11.3 FL (7.4-10.4); NEUT% 64.6 % (42.2-75.2); PLT 209 X1000 (130-400); RBC 3.37 XMIL (4.2-5.4)
[2016-09-30 07:24] LABS: CALCIUM 7.1 mg/dL (8.8-10.2); POTASSIUM 4.8 mmol/L (3.5-5.1)
[2016-09-30] MEDS ORDERED: TIGHT: 0.2 ML/HR MISC PRN (07:57)
[2016-09-30] MEDS ORDERED: NS 2,000 ML MISC PRN (07:57)
[2016-09-30] MEDS ORDERED: HEPARIN IV PRN (07:57)
[2016-09-30] MEDS ORDERED: NS 2,000 ML ONE (08:17)
[2016-09-30] MEDS ORDERED: HEPARIN ONE (08:17)
--- NOTE | 2016-09-30 10:41 | PROGRESS NOTE ---
DATE: 09/30/2016 TIME SEEN: 0900. SUBJECTIVE: Patient currently undergoing dialysis. She states that she feels much better today. She states that she wants to go home. OBJECTIVE: Vital Signs: Temperature 97.6 degrees, pulse 80, respiratory rate 22, blood pressure 142/36. Intake and output: Intake has not been recorded. Output was 1.3 L via Anderson. OBJECTIVE: General: This is a middle-aged, obese female resting in bed. Currently undergoing hemodialysis. She is in no acute distress. She is awake, alert, oriented x4. HEENT: Normocephalic, atraumatic. Oral mucosa is moist. Neck: Supple. Thick. Unable to discern JVD. Cardiovascular: Regular rate and rhythm. No murmur appreciated. Pulmonary: Equal excursion. She has decreased breath sounds secondary to body habitus but there is no overt wheeze or rhonchi noted. She is on 2 L nasal cannula. Abdomen: Obese, soft. Positive bowel sounds. Nontender. : She has a Anderson catheter with moderate urine noted. Extremities: There is no clubbing or cyanosis. Left AKA clean, dry, and intact. Right lower extremity with trace pretibial edema. She is moving her upper extremities. No movement noted to lower. Neurologic: Grossly nonfocal. LAB DATA: WBC of 8.4, hemoglobin 9.0. Sodium 129, potassium 4.8, CO2 21, BUN 52, creatinine 8.0. ASSESSMENT AND PLAN: 1. Uremia secondary to noncompliance with dialysis, resolved. Patient and alert and oriented x4. We will plan to dialyze today as per her routine. She will be dialyzed on a 2 K bath/UF to dry weight/four hour treatment. 2. Fluid volume overload. The patient has had additional dialysis treatments while in the hospital. She is close to her dry weight. We plan to have achieve that target today. 3. Anemia, stable. DISPOSITION: The patient is stable from a primary standpoint. Can be discharged and have outpatient dialysis as follow up. Seen, data reviewed, discussed with Kathe Wallace on 09/30/15. I agree with the above assessment and plan of care. rg Dictated by EDUARDO Vargas for Ino Rucker MD [facility]
[2016-09-30] MEDS ORDERED: NORCO-7.5 PO PRN (12:35)
[2016-09-30] MEDS: FOSRENOL PO SCH ×2 (13:07→13:09)
[2016-09-30] MEDS: APRESOLINE PO SCH ×2 (13:07→14:05)
[2016-09-30] MEDS: DAKIN'S 0.25% SOLN TOP SCH (13:08)
[2016-09-30] MEDS: FOLIC ACID PO SCH (13:08)
[2016-09-30] MEDS: NEURONTIN PO SCH ×2 (13:08→14:11)
[2016-09-30] MEDS: SENSIPAR PO SCH (13:08)
[2016-09-30] MEDS: SYNTHROID PO SCH (14:11)
[2016-09-30] MEDS: EPOGEN SUBQ SCH (14:11)
[2016-09-30 15:02] VITALS: BP 136/45
--- NOTE | 2016-10-01 10:41 | DISCHARGE SUMMARY ---
ADMISSION DATE: 09/26/2016 DISCHARGE DATE: 09/30/2016 CONSULTATION: Dr. Ino Rucker with nephrology. PERTINENT PROCEDURES: Head CT showed no hemorrhage, mild left maxillary mucosal thickening. DISCHARGE DIAGNOSES: 1. Metabolic encephalopathy secondary to uremia, resolved. 2. End-stage renal disease on hemodialysis. 3. Diabetes mellitus type 2. Hemoglobin A1c is 4.5. 4. Hypothyroidism. Continue with home medications. 5. Hyperlipidemia, aware. 6. Morbid obesity, aware. 7. Peripheral artery disease, aware. 8. Generalized weakness. The patient was offered rehabilitation, but she declined, as well as home health and physical therapy. HOSPITAL COURSE: Briefly, Ms. James is a 56-year-old, female with end-stage renal disease with hemodialysis Friday, Friday, Friday. Followed with Dr. Rucker. On the day of admission, patient had not undergone hemodialysis for an unknown reason for a couple of weeks. At the time of her admission, there was no family at the bedside. Per the ED provider, they did speak with the daughter who stated that she had not been to dialysis. She had been to the dialysis on day of her admission, and they had pulled off roughly 15 pounds of fluid per the daughter's report. Apparently upon leaving the dialysis center, she became confused and was brought to the emergency room. The patient was not able to provide any information. She was disoriented x3, unable to give any type of account of what had happened. CT of the head was done; it did not show anything acute. On arrival to the ED, her blood glucose was around 60. She did receive 1 amp of D 50 and also given a 500 normal saline bolus. She was admitted to the medical telemetry floor with a nephrology consult. She was started back on her regular scheduled hemodialysis where it was felt she was uremic with altered sensory that improved after hemodialysis. Her electrolytes and acid base remained acceptable. She received dialysis until she was at her outpatient dry weight, and her uremia was adequately managed. The patient is completely alert and oriented. Her encephalopathy has resolved. PT was ordered for the patient that she adamantly refuses. She refused to go to rehab as well as home health with PT. The patient is appropriate for discharge home, today and she is also just able to discharge per nephrology standpoint, and she can resume her outpatient dialysis. VITAL SIGNS AT TIME OF DISCHARGE: Temperature is 97.6 degrees, heart rate 80, respirations 22, blood pressure 142/36, O2 is 100% on 2 L nasal cannula. DISCHARGE MEDICATIONS: 1. Sensipar 30 mg p.o. b.i.d. 2. Fosrenol 1000 mg p.o. t.i.d. 3. Dakin solution 1 mL topical b.i.d. 4. Epogen 10,000 units subcutaneous Friday, Friday, Friday. 5. Folic acid 0.4 mg p.o. daily. 6. Mcfaddin 7.5, 1 each p.o. q. 6 hours p.r.n. 7. Gabapentin 300 mg p.o. b.i.d. 8. Synthroid 100 mcg p.o. daily. 9. Apresoline 50 mg p.o. t.i.d. FOLLOWUP: The patient is being discharged back home with self care. She will need to follow up with a primary care physician, as well as to resume her regular scheduled hemodialysis and to be compliant. Patient can return to the ED for any worsening of symptoms. DISCHARGE TIME: Greater than 30 minutes. Dictated by EDUARDO Mcgowan for Toño Perez MD
== END 2016-09-30 17:39 | disposition home or self-care (01) | DRG 640 ==
LOC: EDBD → ED 21:51 → 3N 09-26 05:07
PROVIDERS: ATTEND Internal Medicine
PROC: 5A1D60Z (ICD-10-PCS; principal; 2016-09-26)
DX: E87.70 Fluid overload, unspecified (principal); N18.6 End stage renal disease; I13.2 Hypertensive heart and chronic kidney disease with heart failure and with stage 5 chronic kidney disease, or end stage renal disease; G93.41 Metabolic encephalopathy; Z68.43 Body mass index [BMI] 50.0-59.9, adult; E11.22 Type 2 diabetes mellitus with diabetic chronic kidney disease; E11.51 Type 2 diabetes mellitus with diabetic peripheral angiopathy without gangrene; I50.9 Heart failure, unspecified; Z91.15 Patient's noncompliance with renal dialysis; E78.5 Hyperlipidemia, unspecified; F32.9 Major depressive disorder, single episode, unspecified; E66.01 Morbid (severe) obesity due to excess calories; D50.9 Iron deficiency anemia, unspecified; R09.02 Hypoxemia; E03.9 Hypothyroidism, unspecified; H54.42 Blindness, left eye, normal vision right eye; Z89.612 Acquired absence of left leg above knee; Z79.899 Other long term (current) drug therapy; E83.39 Other disorders of phosphorus metabolism; Z83.3 Family history of diabetes mellitus; Z82.49 Family history of ischemic heart disease and other diseases of the circulatory system
CPT/HCPCS: 51702; 70450; 80048; 80053; 81001; 82805; 82948; 83036; 83735; 84100; 84443; 85025; 85610; 87088; 93005; 93010; 94761; 96374; J0885; J1644; J2405; J7030; J7040; 97110-GP; 97530-GP